=== PATIENT | female | born 1940 | race Caucasian/White ===

== ENCOUNTER → 2018-02-14 | Outpatient (CLI) | payer OTHER ==
[~2018-02-14] MED LIST: ACETAMINOPHEN-1 EAC1 PO; ATENOLOL 25 MG25 M1 PO; ATENOLOL 50MG T50 M1 PO; BENADRYL25 MG PO; CELEBREX 200 M200 M1 PO; COLACE 100 MG100 MG PO; COLACE100 MG PO; COUMADIN 1MG TAB1 M1 PO; COUMADIN 2.5MG2.5 M1 PO; DULCOLAX5 MG PO; ENOXAPARIN40 MG/0.1 SUBQ; FOSINOPRIL SODI20 MG PO; FUROSEMIDE 40 M40 M1 PO; HYDROCODON-ACE1 EAC5; IBUPROFEN 800800 M1 PO; KEFLEX500 MG PO; LASIX 40 MG TAB40 M1 PO; METAMUCIL MULT425 GM; METAMUCIL0.52 GM PO; MIRALAX17 G1 PO; NEURONTIN 300300 M1 PO; PACERONE 200 M200 M1 PO; PERCOCET PO; PHENERGAN 25 MG25 M1 PO; POTASSIUM20 PO; REGLAN 10 MG TA10 M1; SENOKOT-S1 TA1 PO; SYNTHROID125 MCG PO; TENORMIN25 MG PO; TYLENOL325 MG PO; VITAMIN D 5050000 I1 PO; VITAMIN D2000 UNIT PO; VITAMIN D350000 UNIT PO
== END ==
LOC: RAD 10:30
DX: J84.10 Pulmonary fibrosis, unspecified (principal)

== ENCOUNTER 2018-03-11 06:04 | Inpatient (IN) | payer OTHER ==
[~2018-03-11] VITALS: Ht 152.4 cm; Wt 127.0 kg
[2018-03-11 08:17] VITALS: BP 128/84
[2018-03-11 10:00] LABS: ABSOLUTE NEUTROPHILS 10.3 thou/uL (1.4-8.2); BASOPHILS 0.6 % (0.0-2.0); EOSINOPHILS 0.9 % (0.0-3.0); HEMATOCRIT 45.2 % (37.0-47.0); HEMOGLOBIN 14.4 gm/dL (12.0-15.0); LYMPHOCYTES 12.4 % (24.0-44.0); MCH 28.5 pg (26.0-34.0); MCV 89.1 fL (80.0-100.0); MONOCYTES 8.6 % (1.0-8.0); PLATELET COUNT 350 thou/uL (150-400); POLYS 77.5 % (36.0-66.0); RBC 5.07 mil/uL (4.20-5.00); RDW 15.6 % (10.5-14.5); WBC 13.3 thou/uL (4.0-11.0)
[2018-03-11 10:12] LABS: INR 2.3; PROTIME 23.4 Seconds (9.3-11.4)
[2018-03-11 10:15] LABS: HCO3 20.3 mmol/L (22.0-26.0); PCO2 31.7 mmHg (35.0-45.0); PO2 127.4 mmHg (80.0-100.0); pH 7.424 (7.360-7.450); sO2 98.6 % (92.0-98.0)
[2018-03-11 10:15] LABS: ANION GAP 9 mmol/L (7-16); BUN 17 mg/dL (7-18); CALCIUM 8.4 mg/dL (8.5-10.1); CHLORIDE 106 mmol/L (98-107); CO2 27 mmol/L (21-32); GLUCOSE 104 mg/dL (74-106); PHOSPHORUS 2.8 mg/dL (2.5-4.9); POTASSIUM 3.9 mmol/L (3.5-5.1); SGOT 54 U/L (15-37); SGPT 96 U/L (30-65); SODIUM 142 mmol/L (136-145); TOTAL BILIRUBIN 0.7 mg/dL (<0.1-1.0); TOTAL PROTEIN 7.3 g/dL (6.4-8.2); TROPONIN-I <0.06 ng/mL (<0.06)
--- NOTE | 2018-03-11 12:54 | NUR ---
PT ADMITTED RELATED TO PNEUMONIA. CM REVEIWED CHART AND SPOKE WITH CARE TEAM. CM MET WITH PT AND DTR/DPOA AT [facility] THIS DAY. PT IS A&O X4. CM ROLE INTRODUCED. PT INDICATED SHE LIVES IN A MOBILE HOME WITH A RAMP TO ENTER AND NO STEPS INSIDE. 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 PT INDICATED SHE HAD ACCESS TO A WALKING STICK. PT INDICATED SHE HAD HH IN THE PAST BUT NOTHING RECENTLY. PT INDICATED SHE HAS A CPAP FOR HOME USE. PT INDICATED SHE PLANS TO RETURN HOME ONCE MEDICALLY STABLE. CM TO FOLLOW INDICATED WITH DC PLANNING.
--- NOTE | 2018-03-11 14:44 | NUR ---
ORDERS RECEIVED FOR EVAL AND TREAT. SPOKE WITH Pt WHO DENIES ANY ISSUES WITH HER MOBILITY. OBSERVED HER STAND AND AMBULATE IN HER ROOM WITHOUT DIFFIUCULTY. Pt DECLINES A FORMAL P.T. EVAL BUT APPEARS SAFE FOR HOME WHENEVER MEDICALLY CLEAR.
[2018-03-11 15:33] VITALS: BP 131/70
[2018-03-11 19:31] VITALS: BP 127/75
[2018-03-12 00:35] VITALS: BP 157/92
[2018-03-12 04:28] LABS: HEMATOCRIT 40.3 % (37.0-47.0); HEMOGLOBIN 13.4 gm/dL (12.0-15.0); MCH 29.5 pg (26.0-34.0); MCHC 33.3 g/dL (28.0-37.0); MCV 88.6 fL (80.0-100.0); RBC 4.55 mil/uL (4.20-5.00); RDW 15.3 % (10.5-14.5); WBC 13.8 thou/uL (4.0-11.0)
[2018-03-12 04:33] LABS: INR 1.6; PROTIME 17.1 Seconds (9.3-11.4)
[2018-03-12 05:06] LABS: CALCIUM 8.3 mg/dL (8.5-10.1); POTASSIUM 3.5 mmol/L (3.5-5.1)
[2018-03-12 05:58] VITALS: BP 129/78
[2018-03-12 08:17] VITALS: BP 153/86
--- NOTE | 2018-03-12 09:53 | 2DMMODE ---
[facility] [place] [address] 2 D/M-MODE ECHOCARDIOGRAM Name: JAMES HONEYCUTT Room #: 456-P ADM IN M.R.#: [id number] Admission: 03/11/18 Attend Phys: Stefano Madison Discharge: Date of : 40 Date of Service: 03/12/18 0953 Report #: [id number] THIS REPORT FOR: //name// APPROVED REPORT Study performed: 03/11/2018 13:47:38 EXAM: Comprehensive 2D, Doppler, and color-flow Echocardiogram Patient Location: Bedside Room #: [facility] Status: routine BSA: 2.15 HR: 93 bpm BP: 128/84 mmHg Rhythm: Atrial Fibrillation Other Information Study Quality: Fair Indications ICD: Congestive Heart Failure Atrial Fibrillation Hypertension/HDD Morbid Obesity Echo Enhancing Agent Indication: Endocardial border delineation Agent(s) / Amount(s) Used: Optison 4 cc 2D Dimensions IVSd: 10.98 (7-11mm) LVOT Diam: 19.09 (18-24mm) LVDd: 45.00 mm PWd: 10.13 (7-11mm) LVDs: 38.21 (25-40mm) Aortic Root: 27.91 mm IVC: 23.00 mm Aortic Valve AoV Peak Jos.: 1.61 m/s AO Peak Gr.: 14.44 mmHg LVOT Max P.50 mmHg LVOT Max V: 0.94 m/s MARCE Vmax: 1.66 cm2 Pulmonary Valve PV Peak Jos.: 0.87 m/s PV Peak Gr.: 3.03 mmHg [facility] [address] [place] [address] 2 D/M-MODE ECHOCARDIOGRAM Name: JAMES HONEYCUTT Room #: 456-P [facility] IN [facility]#: [id number] Admission: 03/11/18 Attend Phys: Stefano Madison Discharge: Date of : 40 Date of Service: 03/12/18 0953 Report #: [id number] Tricuspid Valve TR Peak Jos.: 2.48 m/s TR Peak Gr.: 24.68 mmHg PA Pressure: 40.00 mmHg Left Ventricle The left ventricle is normal size. There is global hypokinesis of the left ventricle. There is normal left ventricular wall thickness. Left ventricular ejection fraction is probably moderately decreased. LVEF is 30-35%. This study is not technically sufficient to allow evaluation of the LV diastolic function due to atrial fibrillation. Right Ventricle Right ventricle is at the upper limits of normal. Right ventricular systolic function is grossly normal. Device lead is present in the right ventricle. Atria Left atrium is dilated. Right atrium is dilated. Device lead is present in the right atrium. Aortic Valve The aortic valve is not well visualized. No aortic regurgitation is present. There is no aortic valvular stenosis. Mitral Valve The mitral valve is normal in structure. Mild mitral regurgitation. No evidence of mitral valve stenosis. Tricuspid Valve The tricuspid valve is normal in structure. There is trace to mild tricuspid regurgitation. Estimated PAP 40 mmHg. There is mild-moderate pulmonary hypertension. Pulmonic Valve The pulmonary valve is normal in structure. Great Vessels The aortic root is normal in size. The inferior vena cava is dilated with no inspiratory collapse. Pericardium Small circumferential pericardial effusion. [facility] [address] [place] [address] 2 D/M-MODE ECHOCARDIOGRAM Name: JAMES HONEYCUTT Room #: 456-P [facility] IN ..#: [id number] Admission: 03/11/18 Attend Phys: Stefano Madison Discharge: Date of : 40 Date of Service: 03/12/18 0953 Report #: [id number] <Conclusion> Very limited and technically difficult study Left ventricular ejection fraction is probably moderately decreased. LVEF is 30-35%. The aortic valve is not well visualized. No aortic valvular stenosis or insufficiency. The mitral valve is normal in structure. Mild mitral regurgitation. There is trace to mild tricuspid regurgitation. Estimated pulmonary artery pressure of 40 mmHg. Small circumferential pericardial effusion. <ELECTRONICALLY SIGNED> By: Pipo Goodwin MD, [facility] 03/12/1853 0953 Pipo Goodwin MD, FACC /INF
--- NOTE | 2018-03-12 09:58 | EKG ---
[address] [address] ELECTROCARDIOGRAM REPORT Name: JAMES HONEYCUTT Room #: 456-P ADM IN M.R.#: [id number] Admission: 03/11/18 Attend Phys: Stefano Silva Discharge: Date of : 40 Report #: [id number] THIS REPORT FOR: //name// [facility] Test Date: 2018-03-11 Test Time: 10:47:03 Pat Name: JAMES HONEYCUTT Department: Room: 456 Gender: F Shear Setter: JESUS ALBERTO : 1940 Requested By: Lisandro Henning Order Number: [id number] MD: Pipo Goodwin Measurements Intervals [place] Rate: 100 P: NV: QRS: 77 QRSD: 170 T: -84 QT: 373 QTc: 482 Interpretive Statements Atrial fibrillation with intermittent ventricular pacing Compared to ECG 06/12/2014 15:58:24 Atrial fibrillation is now present Electronically Signed On 03-12-2018 9:57:59 CORNICE MAKER by Pipo Goodwin [email or web address] <ELECTRONICALLY SIGNED> By: Pipo Goodwin MD, [facility] 03/12/18 [id number] [id number] Pipo Goodwin MD, FACC /EPI
[2018-03-12 13:58] VITALS: BP 150/101
[2018-03-12 17:06] LABS: URINE BILIRUBIN NEGATIVE (Negative); URINE BLOOD NEGATIVE (Negative); URINE CLARITY CLEAR; URINE COLOR YELLOW; URINE GLUCOSE-RANDOM* NEGATIVE (Negative); URINE KETONES NEGATIVE (Negative); URINE LEUKOCYTES-REFLEX NEGATIVE (Negative); URINE NITRITE-REFLEX NEGATIVE (Negative); URINE PROTEIN (DIPSTICK) NEGATIVE (Negative); URINE UROBILINOGEN 0.2 E.U./dl (0.2-1.0)
--- NOTE | 2018-03-12 18:04 | NUR ---
PT STABLE THROUGHOUT SHIFT. PT HAD NO COMPLAINTS. PT UP TO CHAIR FOR MOST OF THE DAY WHICH SHE TOLERATED WELL. PT RESTING COMFORTABLY.
[2018-03-12 19:47] VITALS: BP 127/75
[2018-03-13 05:47] VITALS: BP 129/72
--- NOTE | 2018-03-13 07:33 | NUR ---
progress pt up ad leola to bsc, voiding large amount of clear yellow urine. denies pain. lungs coarse throughout has a harsh cough but no sputum production noted. tele intact reading vpaced with rates in 60 to 70's.
[2018-03-13 08:00] VITALS: BP 131/88
--- NOTE | 2018-03-13 08:03 | EKG ---
[place] [address] [address] [facility] [employer] [facility] [place] [address] ELECTROCARDIOGRAM REPORT Name: JAMES HONEYCUTT Room #: 456-P ADM IN M.R.#: [id number] Admission: 03/11/18 Attend Phys: Lisandro Henning MD Discharge: Date of : 40 Report #: [id number] THIS REPORT FOR: //name// [facility] Test Date: 2018-03-12 Test Time: 11:24:18 Pat Name: JAMES HONEYCUTT Department: Room: [facility] Gender: F Order Packer: kirsty : 1940 Requested By: Trevin Mathew Order Number: [id number] MD: Pipo Goodwin Measurements Intervals [place] Rate: 80 P: [place]: QRS: 225 QRSD: 143 T: 110 QT: 429 QTc: 495 Interpretive Statements Afib/flutter and ventricular-paced rhythm No further analysis attempted due to paced rhythm Baseline wander in lead(s) V3 Compared to ECG 03/11/2018 10:47:03 No significant changes Electronically Signed On 03-13-2018 8:03:20 EYELET CUTTER by Pipo Goodwin [email or web address] <ELECTRONICALLY SIGNED> By: Pipo Goodwin MD, [facility] 03/13/18 0803 [id number] Pipo Goodwin MD, [facility] /EPI
--- NOTE | 2018-03-13 09:31 | NUR ---
MET WITH PATIENT THIS MORNING WHO STATED SHE DOES NOT NEED OT WHILE HERE OR UPON HOME D/C. DAUGHTER CAN BE AVAILABLE IF SHE NEEDS. PT DRIVES. WALK IN BATH WHICH HAS BEEN ADAPTED FOR HER. NO FORMAL OT EVAL
--- NOTE | 2018-03-13 12:22 | NUR ---
Nutrition: assess d/t high BMI. Pt admitted for pneumonia. Hx of lap band surgery ~10 years ago. Pt did not have any weight loss with this. Has tried a variety of things to lose weight with no success. She recently gave up soda and candy, but started eating them again over the holidays. She is aware of diet changes she needs to make, but said she doesn't have the willpower to change. Expressed importance of small changes and not giving up after mistakes. Expect low compliance. Consider low risk.
--- NOTE | 2018-03-13 15:22 | NUR ---
PT STABLE THROUGHOUT SHIFT. PT HAD NO COMPLAINTS. POSSIBLE DC TOMORROW.
[2018-03-13 16:00] VITALS: BP 125/78
--- NOTE | 2018-03-13 16:24 | NUR ---
PT IS PROGRESSING TOWARD GOALOF DISCHARGE. CM TO FOLLOW INDICATED WITH DC PLANNING.
[2018-03-13 19:49] VITALS: BP 104/43
[2018-03-14 03:41] VITALS: BP 128/72
--- NOTE | 2018-03-14 04:02 | NUR ---
Pt. rested quietly at intervals during the night when checked on during frequent rounds. No c/o any shortness of air. Up ad leola in the room.
[2018-03-14 05:29] LABS: ABSOLUTE NEUTROPHILS 12.2 thou/uL (1.4-8.2); BASOPHILS 0.5 % (0.0-2.0); EOSINOPHILS 0.7 % (0.0-3.0); HEMATOCRIT 40.9 % (37.0-47.0); HEMOGLOBIN 13.8 gm/dL (12.0-15.0); LYMPHOCYTES 18.6 % (24.0-44.0); MCH 29.3 pg (26.0-34.0); MCHC 33.7 g/dL (28.0-37.0); MCV 87.1 fL (80.0-100.0); MONOCYTES 6.6 % (1.0-8.0); PLATELET COUNT 323 thou/uL (150-400); POLYS 73.6 % (36.0-66.0); RDW 15.1 % (10.5-14.5); WBC 16.5 thou/uL (4.0-11.0)
[2018-03-14 08:11] VITALS: BP 116/71
[2018-03-14 09:17] LABS: CALCIUM 8.6 mg/dL (8.5-10.1); CREATININE 0.9 mg/dL (0.6-1.0); POTASSIUM 3.5 mmol/L (3.5-5.1)
[2018-03-14] MEDS ORDERED: TOPROL XL100 MG PO (10:22)
[2018-03-14] MEDS ORDERED: DEMADEX20 MG PO (10:22)
[2018-03-14] MEDS ORDERED: ELIQUIS5 MG PO (10:22)
[2018-03-14 15:55] VITALS: BP 108/69
--- NOTE | 2018-03-14 18:42 | NUR ---
PATIENT DOING WELL TODAY. LUNGS CLEAR. NPC NOTED. SAT UP IN CHAIR ALL DAY. HAD GOOD DIURESIS AFTER LASIX THIS AM. MINIMAL EDEMA TO LE'S. DENIED PAIN. TRANSFERRED TO SENIOR SUITES IN GOOD CONDITION. REPORT CALLED.
[2018-03-14 20:51] VITALS: BP 120/65
--- NOTE | 2018-03-15 04:49 | NUR ---
Pt transferred from at shift change. A/OX4,up ad leola without problems. Denies pain on assessment. VSS.LS clear,has a lose cough.Voiding without any problems,requested Senna to be held at HS stating she is having frequent soft BM's now.Has edema to BLE,encouraged to elevate extremities as much as possible. Has a PIV on RAC,patent. Resting quietly at this time with CPAP on,will continue to monitor pt. Call light/personal items within reach.
[2018-03-15 07:39] VITALS: BP 125/72
--- NOTE | 2018-03-15 07:43 | NUR ---
ASSUMED PT CARE AT 0700. PT RESTING IN BED. AWAKE,ALERT/ORIENTED X4. PLEASANT AND COOPERATIVE. ASSESSMENT IS CHARTED. EDEMA NOTED TO BILATERAL LOWER EXTREMITIES. PT REPORTS NON-PRODUCTIVE COUGH AND SINUS DRAINAGE. STATES STEROID SEEMS TO BE HELPING. DENIES PAIN AT THIS TIME. PT ON ROOM AIR SAT 97%. NO NEW CONCERNS AT THIS TIME. WILL CONTINUE CURRENT CARE.
[2018-03-15] MEDS ORDERED: CEFDINIR300 MG PO (12:21)
[2018-03-15] MEDS ORDERED: VENTOLIN HFA 1818 GM INH (12:23)
[2018-03-15] MEDS ORDERED: PREDNISONE 10 M10 MG PO (12:28)
[2018-03-15 12:46] VITALS: BP 125/72
[2018-03-15] MEDS ORDERED: PACERONE 200 M200 M1 PO (13:45)
--- NOTE | 2018-03-15 14:26 | NUR ---
DISCHARGED PT IN STABLE CONDITION WITH DAUGHTER VIA WHEELCHAIR. DISCHARGE INSTRUCTIONS GIVEN WELL RX FOR NEW MEDS.
[2018-03-16 03:07] LABS: ADENOVIRUS Negative (Negative); INFLUENZA A Negative (Negative); INFLUENZA B Negative (Negative); METAPNEUMOVIRUS Negative (Negative); PARAINFLUENZA 1 Negative (Negative); PARAINFLUENZA 2 Negative (Negative); PARAINFLUENZA 3 Negative (Negative); RHINOVIRUS Negative (Negative); RSV A Negative (Negative); RSV B Negative (Negative)
== END 2018-03-15 14:10 | disposition home or self-care (01) | DRG 871 ==
LOC: 4W 06:04 → SICU 03-14 18:48 → ENTRNSPT 03-15 14:01 → EDTRNSPTSTS 03-15 14:04 → SICU 03-15 14:10
PROVIDERS: Nurse Practitioner Gerontology; Pediatrics; ADMIT Internal Medicine
PROC: 5A09457 Assistance with Respiratory Ventilation, 24-96 Consecutive Hours, Continuous Positive Airway Pressure (ICD-10-PCS; principal; 2018-03-11)
DX: A41.9 Sepsis, unspecified organism (principal); J18.9 Pneumonia, unspecified organism; J96.21 Acute and chronic respiratory failure with hypoxia; I50.40 Unspecified combined systolic (congestive) and diastolic (congestive) heart failure; Z68.43 Body mass index [BMI] 50.0-59.9, adult; E03.9 Hypothyroidism, unspecified; M19.90 Unspecified osteoarthritis, unspecified site; Z96.653 Presence of artificial knee joint, bilateral; I48.0 Paroxysmal atrial fibrillation; E66.01 Morbid (severe) obesity due to excess calories; J20.9 Acute bronchitis, unspecified; I11.0 Hypertensive heart disease with heart failure; G47.33 Obstructive sleep apnea (adult) (pediatric); I25.10 Atherosclerotic heart disease of native coronary artery without angina pectoris; D72.829 Elevated white blood cell count, unspecified; E78.5 Hyperlipidemia, unspecified; I25.5 Ischemic cardiomyopathy; Z88.8 Allergy status to other drugs, medicaments and biological substances; Z90.710 Acquired absence of both cervix and uterus; Z95.0 Presence of cardiac pacemaker; Z82.49 Family history of ischemic heart disease and other diseases of the circulatory system; Z82.3 Family history of stroke; Z81.1 Family history of alcohol abuse and dependence; Z79.01 Long term (current) use of anticoagulants; Z79.899 Other long term (current) drug therapy
CPT/HCPCS: 10045; 10047; 15002

== ENCOUNTER 2018-04-11 09:27 | Observation (INO) | payer OTHER ==
[~2018-04-11] VITALS: Ht 152.4 cm; Wt 125.9 kg
[2018-04-11] VITALS (15 sets, daily range): BP systolic 108–169; BP diastolic 58–120
--- NOTE | ~2018-04-11 | P ---
[facility] [address] [place] [address] PROCEDURE REPORT Name: JAMES HONEYCUTT Room #: 213-P [facility] Clint Lemons#: [id number] Admission: 04/11/18 Attend Phys: Trevin Mathew MD Discharge: 04/12/18 Date of : 40 Report #: [id number] THIS REPORT FOR: //name// CC: Jane Mathew PREOPERATIVE DIAGNOSIS: Atrial fibrillation. POSTOPERATIVE DIAGNOSIS: Atrial fibrillation. PROCEDURES PERFORMED: 1. AV node ablation, CPT code 24752. 2. Preprocedural ICD reprogramming, CPT code 53987. 3. Post-procedural ICD reprogramming, CPT code 25692. HISTORY: The patient is a 77-year-old with history of prior Bi-V ICD implantation, who has permanent atrial fibrillation with rapid ventricular response who is here for AV node ablation. The patient was brought to the EP laboratory in a fasting and sedated state and prepped and draped in a sterile fashion. She underwent general anesthesia performed by the Anesthesiology service. I obtained access to the right femoral vein x 1 and placed a SR0 sheath into the right atrium and an 8-mm Biosense Noland ablation catheter into the right atrium as well. We quickly localized the His bundle and performed ablation at 70 velasquez 60 degrees, which resulted in complete heart block. The patient's rhythm was monitored for a period of 30 minutes. Prior to AV node ablation, we had turned off her therapies and decreased her pacing rate down to 40. Post-ablation after monitoring for 30 minutes, we reprogrammed on her ICD therapies and reprogrammed her device to VVIR 70. CONCLUSIONS: 1. Successful atrioventricular node ablation. 2. Successful ICD reprogramming. By: [id number] Trevin Mathew MD /nt
[~2018-04-11 09:27] MED LIST changes: +CEFDINIR300 MG PO; +DEMADEX20 MG PO; +ELIQUIS5 MG PO; +PREDNISONE 10 M10 MG PO; +TOPROL XL100 MG PO; +VENTOLIN HFA 1818 GM INH
[2018-04-11 10:14] LABS: ABSOLUTE NEUTROPHILS 6.4 thou/uL (1.4-8.2); HEMATOCRIT 44.3 % (37.0-47.0); HEMOGLOBIN 14.7 gm/dL (12.0-15.0); LYMPHOCYTES 17.6 % (24.0-44.0); MCH 29.6 pg (26.0-34.0); MCHC 33.1 g/dL (28.0-37.0); MCV 89.2 fL (80.0-100.0); PLATELET COUNT 243 thou/uL (150-400); POLYS 70.4 % (36.0-66.0); RBC 4.96 mil/uL (4.20-5.00); RDW 15.3 % (10.5-14.5); WBC 9.1 thou/uL (4.0-11.0)
[2018-04-11 10:26] LABS: APTT 31.5 Seconds (24.5-32.8); CALCIUM 9.2 mg/dL (8.5-10.1); CREATININE 1.4 mg/dL (0.6-1.0); INR 1.1; POTASSIUM 4.2 mmol/L (3.5-5.1); PROTIME 11.2 Seconds (9.3-11.4)
[2018-04-11 10:30] LABS: ALBUMIN 3.2 g/dL (3.4-5.0); TOTAL PROTEIN 6.8 g/dL (6.4-8.2)
--- NOTE | 2018-04-11 17:58 | NUR ---
PT ADMITED FROM CARDIAC CATH. ADMISSION HX AND ASSESSMENT COMPLETED. PT HAD PACEMAKER ABLATION. DRIED BLOOD NOTED ON THE RIGHT GROIN INCISION. NO HEMATOMA NOTED. HAS REDNESS UNDER ABD FOLDS. DENIED HAVING PAIN OR DISCOMFORT. NO CARDIAC OR RESPITOR DISTRESS NOTED. WILL CONTINUE TO MONITOR.
[2018-04-12 03:57] VITALS: BP 121/68
--- NOTE | 2018-04-12 04:46 | NUR ---
ASSUMED PT CARE AT 1900. VSS. PT A&0X4. RIGHT GROIN SITE DRESSING CHANGED TO GAUZE AND TEGEDERM WHICH IS NOW CDI. INITIAL DRESSING POST INSTRUMENT SETTER HAD MINIMAL DRIED BLOOD ON IT AND SOME MOISTURE FROM PT'S PANNUS SWEAT HENCE REASON FOR DRESSING CHANGE. SOME RASH/REDNESS/MOISTURE NOTED ON LEFT GROIN AREA; INTERDRY APPLIED. PT IS STABLE, NO COMPLAINTS OF DISTRESS, OR PAIN, GOOD URINE OUTPUT OVERNIGHT, FOLET STILL IN, BLANTON CARE GIVEN, ASSESSMENTS ARE DOCUMENTED WILL CONTINUE TO MONITOR PER POC.
[2018-04-12 05:11] LABS: CALCIUM 8.8 mg/dL (8.5-10.1); CREATININE 1.3 mg/dL (0.6-1.0); POTASSIUM 4.3 mmol/L (3.5-5.1)
[2018-04-12 08:09] VITALS: BP 135/84
--- NOTE | 2018-04-12 08:19 | EKG ---
[address] [address] ELECTROCARDIOGRAM REPORT Name: JAMES HONEYCUTT Room #: 213-[facility]..#: [id number] Admission: 04/11/18 Attend Phys: Trevin Mathew MD Discharge: Date of : 40 Report #: [id number] THIS REPORT FOR: //name// [facility] Test Date: 2018-04-12 Test Time: 07:12:17 Pat Name: JAMES HONEYCUTT Department: Room: 213 Gender: F Manager Field Services: TIARA : 1940 Requested By: Trevin Mathew Order Number: [id number] MD: Trevin Mathew Measurements Intervals [place] Rate: 70 P: [place]: QRS: -77 QRSD: 129 T: 97 QT: 456 QTc: 493 Interpretive Statements Afib/flutter and biventricular-paced rhythm No further analysis attempted due to paced rhythm Compared to ECG 03/12/2018 11:24:18 No significant changes Electronically Signed On 04-12-2018 8:18:53 LIVESTOCK LABORER by Trevin Mathew [email or web address] <ELECTRONICALLY SIGNED> By: Trevin Mathew MD 04/12/18817 1 1 Trevin Mathew MD /EPI
[2018-04-12 09:34] VITALS: BP 135/84
--- NOTE | 2018-04-12 10:54 | NUR ---
ASSESSMENT DOCUMENTED. PT ALERT AND ORIENTED. VSS. DENIED HAVING PAIN OR DISCOMFORT. NO HEMATOMA NOTED ON THE RIGHT GROIN INCISION. RAMONITA D/C. PT HAS BEEN ABLE TO VOID X2. SEEN BY DR. GOYAL. ORDERS GIVEN TO D/C PT TO HOME. DISCHARGE INSTRUCTIONS GIVEN TO PT. PT VERBERLIZE UNDERSTANDING. PT LEFT THE FACILITY ACCOMPANIED BY THE DAUGHTER.
== END 2018-04-12 10:57 | disposition home or self-care (01) ==
LOC: CATH 09:27 → 2N 13:45 → CATH 14:24 → ENTRNSPT 04-12 10:44 → EDTRNSPTSTS 04-12 10:50 → 2N 04-12 10:57
PROVIDERS: ADMIT Internal Medicine Cardiovascular Disease
DX: I48.0 Paroxysmal atrial fibrillation (principal); I11.0 Hypertensive heart disease with heart failure; I50.9 Heart failure, unspecified; G47.30 Sleep apnea, unspecified; Z79.899 Other long term (current) drug therapy
CPT/HCPCS: 62110; 62900; 70005